=== PATIENT | female | born 2005 | race African-American/Black ===

== ENCOUNTER 2023-05-20 08:12 | Outpatient (REF) | payer OTHER, MEDICAID, SELFPAY ==
--- NOTE | ~2023-05-20 | US_ITS ---
EXAMINATION: US PELVIS CLINICAL INFORMATION: Menorrhagia, IUD check, last menstrual period 05/17/2023. COMPARISON: None available. TECHNIQUE: Ultrasound of the pelvis is performed using both transabdominal and transvaginal transducers along with Doppler. Transvaginal imaging is performed due to inadequate visualization transabdominally. FINDINGS: The uterus is heterogeneous and measures 7.6 x 2.6 x 3.9 cm. Uterus is anteverted. No discrete fibroids appreciated. IUD in place within the endometrial cavity. Endometrial thickness is 3 mm. No significant free fluid. Right ovary measures 2.8 x 4.0 x 2.8 cm, volume 15.4 mL. 1.8 cm right ovarian cyst is likely physiologic, probably a follicle. There is no specific indication for additional imaging at this time. Left ovary measures 2.4 x 3.3 x 2.4 cm, volume 9.0 mL and is unremarkable. US/US pelvic and transvaginal IMPRESSION: 1. IUD in place within the endometrial cavity. 2. Endometrial thickness is 3 mm. 3. No discrete fibroids. 4. A 1.8 cm right ovarian cyst is likely physiologic, probably a follicle. There is no specific indication for additional imaging at this time.
== END 2023-05-20 08:13 | disposition home or self-care (01) ==
LOC: HO.UMASIMG 08:12
PROVIDERS: Visit Provider Family Medicine
DX: N92.0 Excessive and frequent menstruation with regular cycle (principal)
CPT/HCPCS: 76830; 76856

== ENCOUNTER 2024-05-02 06:37 | Outpatient (REF) | payer OTHER, MEDICAID, SELFPAY ==
--- NOTE | ~2024-05-02 | US_ITS ---
EXAMINATION: US PELVIS CLINICAL INFORMATION: Menorrhagia, IUD, IUD check placement. COMPARISON: 05/12/2023. TECHNIQUE: Ultrasound of the pelvis is performed using both transabdominal and transvaginal transducers along with Doppler. Transvaginal imaging is performed due to inadequate visualization transabdominally. FINDINGS: Uterus: The uterus is anteverted and measures 6.9 x 3.5 x 5.5 cm. The cervix appears normal. The double wall endometrial thickness is 2 mm. IUD is in place and properly positioned within the endometrial canal. The uterus is smooth in contour and has normal myometrial echogenicity. No visible fibroid. Adnexa: Both ovaries are visualized. There is normal color flow to the adnexa. There is no ovarian torsion. There is no pelvic ascites or fluid collection. Right ovary measures 4.6 x 3.0 x 2.8 cm. Volume = 20.4 mL. There is a simple follicular cyst measuring 2.5 cm. Left ovary measures 2.8 x 2.5 x 2.1 cm. Volume = 7.6 mL. Normal sonographic appearance. US/US pelvic and transvaginal IMPRESSION: 1. IUD is well positioned with a normal 2 mm thickness endometrial canal. 2. No myometrial abnormalities. 3. Normal ovaries bilaterally. Electronically signed by: Theodore Polk MD 05/02/2024 10:37 AM EDT
== END 2024-05-02 06:38 | disposition home or self-care (01) ==
LOC: HO.UMASIMG 06:37
PROVIDERS: Visit Provider Family Medicine
DX: N92.0 Excessive and frequent menstruation with regular cycle (principal); F50.9 Eating disorder, unspecified
CPT/HCPCS: 76830; 76856

== ENCOUNTER → 2024-05-02 10:00 | Outpatient (BNV) | payer OTHER, MEDICAID, SELFPAY | PROVIDERS: Visit Provider Radiology Diagnostic Radiology | DX: N92.0 Excessive and frequent menstruation with regular cycle (principal) | CPT/HCPCS: 76830; 76856 ==